=== PATIENT | male | born 1990 | race Hispanic/Latino ===

== ENCOUNTER 2021-06-25 17:10 | Observation (INO) | payer SELFPAY ==
[2021-06-25] VITALS (15 sets, daily range): BP systolic 104–143; BP diastolic 36–92
[~2021-06-25] VITALS: Ht 177.8 cm; Wt 95.4 kg
[~2021-06-25 17:10] MED LIST: HYDROCO/APAP1 T10 PO; NAPROSYN500 MG OR; NAPROSYN500 MG PO; NO
[2021-06-25 18:02] LABS: HEMOGLOBIN 15.4 g/dl (14.0-18.0); IMMATURE GRANULOCYTES 0.1 % (0.0-5.0); MEAN CELL VOLUME 92.7 fL CALC (80.0-100.0); MEAN CORPUSCULAR HGB 30.4 pG CALC (26.0-32.0); MEAN CORPUSCULAR HGB CONC 32.8 g/dL CAL (32.0-36.0); NEUT# 11.72 thou/uL (1.82-7.42); RED BLOOD COUNT 5.07 mill/uL (4.70-6.10); RED CELL DISTRI WIDTH 12.1 % (11.5-15.5)
[2021-06-25 18:03] LABS: URINE BILIRUBIN - DIPSTICK NEGATIVE (NEGATIVE); URINE BLOOD DIPSTICK NEGATIVE (NEGATIVE); URINE COLOR YELLOW; URINE GLUCOSE - DIPSTICK NEGATIVE (NEGATIVE); URINE KETONE NEGATIVE (NEGATIVE); URINE LEUK ESTERASE NEGATIVE (NEGATIVE); URINE PROTEIN - DIPSTICK NEGATIVE (NEG-TRACE); URINE SPECIFIC GRAVITY 1.025; URINE UROBILINOGEN - DIPSTICK 0.2 E.U./dL (0.2)
[2021-06-25 18:06] LABS: URINE NITRITE - DIPSTICK NEGATIVE (Negative)
[2021-06-25 18:18] LABS: ALBUMIN 4.5 g/dL (3.2-5.0); ANION GAP 11 (6-22 (CALC)); BUN 13 mg/dL (9-20); BUN/CREATININE RATIO 16 (12-20 (CALC)); CARBON DIOXIDE 29 mmol/l (22-30); CHLORIDE 105 mmol/l (95-108); CREATININE 0.8 mg/dL (0.7-1.3); GFR > 60 ML/MIN (>=60 (CALC)); GFR FOR AFR.AMER. > 60 ML/MIN (>=60 (CALC)); LIPASE 107 u/l (23-300); POTASSIUM 3.8 mmol/l (3.5-5.1); SGOT/AST 21 u/l (17-59); SODIUM 141 mmol/l (137-146); TOTAL PROTEIN 7.7 g/dL (6.3-8.2)
[2021-06-25 18:28] LABS: ALKALINE PHOSPHATASE 87 u/l (38-126); BILIRUBIN, TOTAL 0.3 mg/dL (0.0-1.4)
[2021-06-26 04:00] VITALS: BP 96/50
[2021-06-26 04:36] VITALS: BP 96/50
[2021-06-26 06:47] VITALS: BP 105/55
[2021-06-26] MEDS ORDERED: PERCOCET 5/321 COMBO PO (09:48)
[2021-06-26 10:36] VITALS: BP 136/82
== END 2021-06-26 12:46 | disposition home or self-care (01) | DRG 343 ==
LOC: ED 17:10 → ED-I 19:41 → ED 19:51 → MS2 19:52
PROVIDERS: Nurse Practitioner; ADMIT Surgery; ATTEND Surgery
PROC: 0DTJ4ZZ Resection of Appendix, Percutaneous Endoscopic Approach (ICD-10-PCS; principal; 2021-06-26)
DX: K35.30 Acute appendicitis with localized peritonitis, without perforation or gangrene (principal); Z20.822 Contact with and (suspected) exposure to COVID-19
CPT/HCPCS: G0378; J0131; Q9967